=== PATIENT | female | born 1975 | race Caucasian/White ===

== ENCOUNTER → 2017-01-11 | Outpatient (CLI) | payer OTHER ==
--- NOTE | 2017-01-11 14:52 | DIAGNOSTIC IMAGING REPORT ---
BONE SCAN WHOLE BODY CLINICAL HISTORY: Right rib pain. Trauma. COMPARISON STUDY: Report of outside rib series dated 12/01/2016 FINDINGS: The patient was injected with 24.5 mCi of technetium 99m MDP. Three-hour delayed whole body images were acquired. These were supplemented with lateral views of the ribs. There are foci of increased activity involving the anterior costochondral junction of the right ribs, likely numbers 6 and 8. The distribution and appearance and history are all suggestive of a post traumatic etiology. The skeletal uptake is otherwise normal. IMPRESSION: Abnormal foci of increased activity involving the costochondral junctions of right-sided ribs likely #6 and 8. The findings are consistent with a posttraumatic etiology. Otherwise normal whole body bone scan Electronically signed by: Alfa Villalpando M.D. 01/11/2017 2:50 PM Dictated Date/Time: 01/11/2017 2:46 PM
== END | disposition home or self-care (01) ==
LOC: C.NUCL 11:09
PROVIDERS: ATTEND Family Medicine
DX: R52 Pain, unspecified (principal); R93.7 Abnormal findings on diagnostic imaging of other parts of musculoskeletal system